=== PATIENT | male | born 1995 | race Caucasian/White ===

== ENCOUNTER 2025-06-04 15:23 | Emergency (ER) | payer OTHER ==
[~2025-06-04] VITALS: Ht 190.5 cm; Wt 111.1 kg
[~2025-06-04 15:23] MED LIST: RXCLIN PO
[2025-06-04] MEDS ORDERED: METPRE4DP PO (17:27)
[2025-06-04] MEDS ORDERED: Dexamethasone Sod Phos 10 MG/ML 1ML VIAL PO ONE (17:30)
== END 2025-06-04 17:39 | disposition home or self-care (01) ==
LOC: ER 15:23
DX: M54.10 Radiculopathy, site unspecified (principal)
CPT/HCPCS: 72100; 99283-25; J1100

== ENCOUNTER 2025-06-08 13:49 | Emergency (ER) | payer OTHER ==
[~2025-06-08] VITALS: Ht 190.5 cm; Wt 111.1 kg
[~2025-06-08 13:49] MED LIST changes: +METPRE4DP PO
[2025-06-08] MEDS ORDERED: NS 1,000 ML IV SCH (14:45)
[2025-06-08] MEDS ORDERED: Diazepam 5 MG / ML 2ML SYR IV ONE (14:45)
[2025-06-08 16:24] LABS: Alanine Aminotransfer (ALT/SGP 65 U/L (12-78); Albumin, Blood 4.2 g/dL (3.4-5.0); Albumin/Globulin Ratio 1.2 (0.8-1.8); Anion Gap 8 mmol/L (3-11); Aspartate Aminotrans (AST/SGOT 80 U/L (12-37); Bilirubin, Total 2.2 mg/dL (0.1-1.0); Blood Urea Nitrogen 19 mg/dL (8-24); CO2, Blood 29 mmol/L (21-32); Calcium, Blood 9.6 mg/dL (8.5-10.1); Chloride, Blood 102 mmol/L (98-108); Creatinine, Blood 1.09 mg/dL (0.60-1.20); Ethanol (Alcohol), Blood, Med <3 mg/dL; Globulin, Blood 3.5 g/dL (2.2-4.0); Glucose, Blood 99 mg/dL (70-99); Potassium, Blood 2.9 mmol/L (3.5-5.5); Sodium, Blood 136 mmol/L (136-145); Total Protein, Blood 7.7 g/dL (6.4-8.2)
[2025-06-08 16:45] LABS: Source, Urine Clean Catch
[2025-06-08] MEDS ORDERED: Ketorolac Tromethamine 15mg Vial IV ONE (16:55)
[2025-06-08 16:57] LABS: BASOPHILS ABSOLUTE AUTO 0.08 K/mm3 (0.00-0.23); BASOPHILS PERCENT AUTO 1 % (0-2); EOSINOPHILS ABSOLUTE AUTO 0.03 K/mm3 (0.00-0.68); EOSINOPHILS PERCENT AUTO 0 % (0-6); Hematocrit 47.3 % (37.0-53.0); Hemoglobin 17.7 g/dL (13.5-17.5); IMMATURE GRAN ABSOLUTE AUTO 0.10 K/mm3 (0.00-0.10); IMMATURE GRAN PERCENT AUTO 1 % (0-1); LYMPHOCYTES ABSOLUTE AUTO 2.03 K/mm3 (0.84-5.20); LYMPHOCYTES PERCENT AUTO 19 % (21-46); MONOCYTES ABSOLUTE AUTO 0.88 K/mm3 (0.16-1.47); MONOCYTES PERCENT AUTO 8 % (4-13); Mean Corpuscular HGB Conc 37.4 g/dL (31.5-36.5); Mean Corpuscular Volume 102 fL (80-100); NEUTROPHILS ABSOLUTE AUTO 7.49 K/mm3 (1.96-9.15); NEUTROPHILS PERCENT AUTO 71 % (41-73); NRBC ABSOLUTE 0.00 K/mm3 (0.00-0.02); NRBC Auto 0.0 /100 WBC (0.0-0.2); Platelet Count 228 K/mm3 (150-400); RDW Coefficient Variation 11.6 % (11.7-14.2); RDW Standard Deviation 43.4 fL (35.1-46.3)
[2025-06-08 17:02] LABS: Color, Urine Yellow (P-Yellow); Glucose Qualitative, Urine Neg (Neg); Ketones, Urine 1+ (Neg); Leukocyte Esterase, Urine 1+ (Neg); Protein, Urine 2+ (Neg); Specific Gravity, Urine 1.020 (1.003-1.022); Urobilinogen, Urine 2+ (Normal)
[2025-06-08] MEDS ORDERED: CHLO25 PO (17:02)
[2025-06-08 17:16] LABS: Bilirubin, Urine 1+ (Neg)
[2025-06-08 17:19] LABS: WBC Cast 0-2 /lpf (0)
[2025-06-08 17:30] LABS: U Amphetamine Screen Not Detected; U Barbituate Screen Not Detected; U Benzodiazapine Screen Not Detected; U Buprenorphine Screen Not Detected; U Cannabinoids Screen DETECTED; U Cocaine Screen Not Detected; U Methadone Screen Not Detected; U Methamphetamine Screen Not Detected; U Opiates Screen Not Detected; U Oxycodone Screen Not Detected; U Phencyclidine Screen Not Detected
== END 2025-06-08 17:10 | disposition home or self-care (01) ==
LOC: ER 13:49
PROVIDERS: Student in an Organized Health Care Education/Training Program
DX: F10.232 Alcohol dependence with withdrawal with perceptual disturbance (principal); Y90.0 Blood alcohol level of less than 20 mg/100 ml; M25.551 Pain in right hip
CPT/HCPCS: 80053; 80320; 81001; 83690; 85025; 87086; 93005; 93010; 96361; 96374; 96375; 99285-25; A9270; J1885; J3360; J7030